=== PATIENT | female | born 1980 | race African-American/Black ===

== ENCOUNTER 2024-05-29 08:20 | Emergency (ER) | payer OTHER ==
[2024-05-29 08:38] VITALS: BP 146/64; PULSE 71; RESP 16; TEMP 98.5; BMI 22.0
[2024-05-29 09:37] LABS: EPI CELLS 10 /uL (0-25.1); HYALINE CASTS 6 /uL (0-3.1); URINE APPEARANCE TURBID; URINE BILIRUBIN 1+ (NEGATIVE); URINE COLOR RED; URINE GLUCOSE (UA) NEGATIVE (NEGATIVE); URINE KETONE NEGATIVE (NEGATIVE); URINE LEUK ESTERASE 2+ (NEGATIVE); URINE NITRITE POSITIVE (NEGATIVE); URINE PROTEIN 3+ (NEGATIVE); URINE RBC 3331 /uL (0-23.9); URINE UROBILINOGEN 0.2 mg/dL (0.2-1.0); URINE WBC 2 /uL (0-25.8)
[2024-05-29 09:52] LABS: BASO % 0.7 % (0-2.0); EOS % 2.8 % (0-4.5); HEMOGLOBIN 8.2 GM/dL (10.7-15.3); LYMPH % 23.2 % (8-40); MCHC 30.4 g/dl (32.0-36.0); MEAN CELL VOLUME 62.3 fl (80-96); MEAN PLT VOLUME 7.5 fl (7.5-11.1); MONO % 9.6 % (3.8-10.2); NEUT % 63.7 % (42.8-82.8); PLATELET COUNT 373 10^3/uL (134-434); RBC 4.33 M/mm3 (3.60-5.2); RDW 20.4 % (11.6-15.6)
[2024-05-29 09:53] LABS: MCH 18.9 pg (25.7-33.7)
[2024-05-29 11:23] LABS: ANISOCYTOSIS 1+; MACROCYTOSIS 0
[2024-05-29 12:15] LABS: URINE BACTERIA 6.6 /uL (0-1359)
[2024-05-29 12:29] LABS: HIV INTERPRETATION NEGATIVE (NEGATIVE)
== END 2024-05-29 18:25 | disposition home or self-care (01) ==
LOC: JER 08:20
DX: N93.9 Abnormal uterine and vaginal bleeding, unspecified (principal); N70.11 Chronic salpingitis; N83.201 Unspecified ovarian cyst, right side; N83.202 Unspecified ovarian cyst, left side; D21.9 Benign neoplasm of connective and other soft tissue, unspecified
CPT/HCPCS: 36415; 76830-TC; 81003; 84703; 85025; 86780; 86803; 87086; 87389; 87491; 87591; 87661; 99284-25

== ENCOUNTER 2024-11-09 11:32 | Emergency (ER) | payer OTHER ==
[2024-11-09 11:43] VITALS: BP 115/88; PULSE 89; RESP 20; TEMP 98; BMI 20.7
[2024-11-09 14:14] LABS: BASO % 1.3 % (0-2.0); EOS % 2.3 % (0-4.5); HEMATOCRIT 26.5 % (32.4-45.2); HEMOGLOBIN 7.7 GM/dL (10.7-15.3); LYMPH % 31.6 % (8-40); MEAN PLT VOLUME 8.2 fl (7.5-11.1); MONO % 6.6 % (3.8-10.2); NEUT % 58.2 % (42.8-82.8); PLATELET COUNT 302 10^3/uL (134-434); RBC 4.41 M/mm3 (3.60-5.2); RDW 20.8 % (11.6-15.6); WHITE BLOOD COUNT 10.4 K/mm3 (4.0-10.0)
[2024-11-09 14:15] LABS: MCH 17.4 pg (25.7-33.7)
[2024-11-09 14:17] LABS: INR 1.02 (0.83-1.09); PROTHROMBIN TIME (PATIENT) 11.7 SEC (9.7-13.0)
[2024-11-09 14:20] LABS: ACTIVATED PTT 26.3 SECONDS (25.2-36.5)
[2024-11-09] MEDS ORDERED: ACETAMINOPHEN 500 MG TABLET (FP) ONE (14:21)
[2024-11-09] MEDS: ACETAMINOPHEN 500 MG TABLET (FP) PO ONE (14:30)
[2024-11-09 14:36] LABS: POTASSIUM 3.5 mmol/L (3.5-5.1)
[2024-11-09 14:39] LABS: ALBUMIN 3.7 g/dl (3.4-5.0); BLOOD UREA NITROGEN 11.8 mg/dL (7-18); MAGNESIUM 2.1 mg/dL (1.8-2.4)
[2024-11-09 14:40] LABS: ANISOCYTOSIS 2+; MACROCYTOSIS 1+; TEAR DROP CELLS 1+
[2024-11-09 14:42] LABS: CREATININE 0.8 mg/dL (0.55-1.3)
[2024-11-09 14:43] LABS: BILIRUBIN,TOTAL 0.5 mg/dL (0.2-1); TOT PROT 7.5 g/dl (6.4-8.2)
[2024-11-09 14:47] LABS: PH,URINE 6.5 (5.0-8.0); URINE APPEARANCE CLEAR; URINE BILIRUBIN NEGATIVE (NEGATIVE); URINE COLOR YELLOW; URINE GLUCOSE (UA) NEGATIVE (NEGATIVE); URINE KETONE NEGATIVE (NEGATIVE); URINE LEUK ESTERASE NEGATIVE (NEGATIVE); URINE NITRITE NEGATIVE (NEGATIVE); URINE PROTEIN NEGATIVE (NEGATIVE)
== END 2024-11-09 16:55 | disposition home or self-care (01) ==
LOC: JER 11:32
DX: D64.89 Other specified anemias (principal); R53.1 Weakness; R06.02 Shortness of breath; R42 Dizziness and giddiness; F41.0 Panic disorder [episodic paroxysmal anxiety]; R09.81 Nasal congestion; Z20.822 Contact with and (suspected) exposure to COVID-19
CPT/HCPCS: 0241U-QW; 36415; 71046-TC-FY; 80053; 81003; 83735; 84439; 84443; 84703; 85025; 85610; 85730; 86850; 86900; 86901; 87086; 99284-25

== ENCOUNTER 2025-01-17 12:50 | Day surgery (SDC) | payer OTHER ==
[2025-01-17] MEDS: IRON DEXTRAN COMPLEX 1,000 MG in SODIUM CHLORIDE 250 ML IVPB ONE (13:54)
[2025-01-17 15:06] VITALS: RESP 18; TEMP 98.3
[2025-01-17 15:58] VITALS: BP 131/66; PULSE 74
== END 2025-01-17 16:01 | disposition home or self-care (01) ==
LOC: JONCNONCHE 12:50 → J7W 12:51 → JONCNONCHE 16:01
PROVIDERS: ATTEND Internal Medicine Hematology & Oncology
PROC: 3E033GC Introduction of Other Therapeutic Substance into Peripheral Vein, Percutaneous Approach (ICD-10-PCS; principal; 2025-01-17)
DX: D50.9 Iron deficiency anemia, unspecified (principal)
CPT/HCPCS: 96365; J1750